=== PATIENT | male | born 1975 | race Caucasian/White ===

== ENCOUNTER → 2017-04-25 | Outpatient (CLI) | payer MEDICAID ==
[~2017-04-25] MED LIST: HYDROCODONE-APA1 TA2 PO; NEURONTIN600 M1 PO
[2017-04-25 13:55] LABS: HEMOGLOBIN 15.4 g/dL (14.1-18.0); LYMPH # 1.4 K/mm3 (0.7-4.5); LYMPH % 24.3 % (10-50)
[2017-04-25 14:29] LABS: BUN 9 mg/dL (7-18); GFR (ESTIMATED) 107 ML/MIN (>60)
[2017-04-26 09:38] LABS: HBsAg Screen Negative (Negative); Hep A Ab, IgM Negative (Negative); Hep B Core Ab, IgM Negative (Negative); Hep C Virus Ab 0.1 (0.0-0.9)
== END ==
LOC: LAB 13:10
PROVIDERS: Emergency Medicine
DX: R53.83 Other fatigue (principal); Z79.899 Other long term (current) drug therapy